=== PATIENT | male | born 1990 | race Asian ===

== ENCOUNTER 2019-12-18 20:27 | Observation (INO) | payer OTHER ==
[~2019-12-18] VITALS: Ht 175.3 cm; Wt 70.0 kg
--- NOTE | 2019-12-18 03:49 | NUR ---
Pt arrived to the floor Alert and oriented. Pt lungs vitals were within normal limits, lung sounds clear, and heart sounds were S1 and S2. Pt bowel sounds were audible in all quads. Pt has normal saline running at 125ml/hr in his left AC. Pt now has on gown and is lying in bed. He states that he has no concerns at this time. Pt has his call light within reach and will call if he needs anything
[2019-12-18 21:10] LABS: COLLECTION METHOD CLEAN CATCH
[2019-12-18 21:14] LABS: BASO % 0.2 % (0.0-2.0); EOS % 0.2 % (0-4.0); GRAN # 11.2 (1.4-6.5); GRAN % 86.2 % (42.2-75.2); HEMATOCRIT 47.4 % (42.0-52.0); HEMOGLOBIN 16.7 g/dl (13.5-18.0); LYMPH # 1.1 (1.2-3.4); LYMPH % 8.3 % (20.0-51.0); MEAN CELL VOLUME 85 fl (80.0-100.0); MEAN CORPUSCULAR HEMOGLOBIN 30 pg (27.0-31.0); MEAN CORPUSCULAR HGB CONC 35 g/dl (33.0-37.0); MEAN PLATELET VOLUME 9.5 fl (7.4-10.4); MONO # 0.6 (0.1-0.6); MONO % 4.8 % (1.7-9.3); PLATELET COUNT 193 K/mm3 (130-400); REDCELL DISTRIBUTION WIDTH-CV 11.1 % (11.5-14.5)
[2019-12-18 21:17] LABS: MUCOUS Present /lpf; PH 6 (5-8); SQUAMOUS EPITHELIAL None Seen /hpf; URINE APPEARANCE Clear; URINE BACTERIA None Seen /hpf; URINE BILIRUBIN Negative (NEGATIVE); URINE BLOOD Negative (NEGATIVE); URINE COLOR Yellow; URINE GLUCOSE Negative (NEGATIVE); URINE KETONE 2+ (NEGATIVE); URINE LEUKOCYTE ESTERASE Negative (NEGATIVE); URINE NITRATE Negative (NEGATIVE); URINE PROTEIN(semi-quant) Negative (NEGATIVE); URINE RBC 0-2 /hpf; URINE UROBILINOGEN Negative (NEGATIVE)
[2019-12-18 21:32] LABS: ALANINE AMINOTRANSFERASE 32 U/L (4-49); ALBUMIN 4.9 gm/dL (3.5-5.0); ALKALINE PHOSPHATASE 108 U/L (50-136); ANION GAP 11 mmol/L (7-16); AST,SGOT 38 U/L (15-37); BLOOD UREA NITROGEN 19 mg/dL (9-20); C-REACTIVE PROTEIN < 0.5 mg/dL (0.0-0.9); CARBON DIOXIDE 28 mmol/L (22-30); CHLORIDE 102 mmol/L (98-107); CREATININE, serum 0.79 (0.66-1.25); GLUCOSE 119 mg/dL (74-106); LIPASE 101 U/L (23-300); POTASSIUM 3.7 mmol/L (3.4-5.0); SODIUM 140 mmol/L (137-145); TOTAL PROTEIN 8.4 gm/dL (6.4-8.2)
[2019-12-19] VITALS (11 sets, daily range): BP systolic 107–127; BP diastolic 55–74; PULSE 55–79; TEMP 98.5–98.9
--- NOTE | 2019-12-19 07:35 | NUR ---
Patient resting in bed. ALert & oriented. Persian is not his primary language, but he seems to be able to communicate well. We reviewed importance of remaining NPO at this time. He denies nausae. He denies the need for pain medications. Ivf per orders to [facility]. Alex lee.
--- NOTE | 2019-12-19 08:45 | NUR ---
Patient to Or with Yasir hsu. rounded. Orders obtained. Consent. Ivf to gravity & Iv Zosyn per orders. Patient indenpendent with hygiene prior to OR
[2019-12-19] MEDS ORDERED: NORCO 325 MG-51 TAB PO (09:49)
--- NOTE | 2019-12-19 13:45 | NUR ---
SW met with the patient to discuss discharge plan. The patient lives in [place] with his , Kimberly Young (ph#[phone]), and their son. He is a PhD student at [employer]. He reports independence with ADLs and does not have any DME. The patient receives primary care and his meds at [facility]. He reports no difficulties obtaining his meds. The patient does not have advanced directives and he was not interested in completing them at this time. The patient plans to return home with his family upon discharge. No additional needs at this time.
--- NOTE | 2019-12-19 18:19 | NUR ---
Patient ready for discharge. His vitals have been stable post op. He has tolerated diet & had a good appetite. He was finally able to void without difficulty. All discharge instructions reviwed. Nichole elam sent with patient & medication safety discussed.
== END 2019-12-19 18:40 | disposition home or self-care (01) ==
LOC: COL.ER 20:27 → SURG 12-19 01:25
PROVIDERS: Emergency Medicine; ADMIT Surgery
DX: K35.80 Unspecified acute appendicitis (principal)
CPT/HCPCS: G0378; J1885; J2405; J2543; J2704; J3010; J7030; Q9967